=== PATIENT | male | born 2000 | race Caucasian/White ===

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

== ENCOUNTER 2021-02-23 20:18 | Emergency (ER) | payer BC ==
[2021-02-23 20:42] VITALS: BP 136/86; PULSE 79; RESP 18; TEMP 98.3
[2021-02-23] MEDS ORDERED: predniSONE 50 MG TAB PO STA (20:57)
[2021-02-23] MEDS ORDERED: diphenhydrAMINE 50 MG/ML 1 ML VIAL IM STA (20:57)
--- NOTE | 2021-02-23 21:00 | ED ---
Skin/Abscess/FB HPI - General Chief complaint: Skin/Abscess/Foreign Body Stated complaint: rash/hives Time Seen by Provider: 02/23/21 20:49 Source: patient, RN notes reviewed Mode of arrival: ambulatory Limitations: no limitations - History of Present Illness Initial comments: 20-year-old white male patient, alert and oriented 4, presents to the emergency room with complaints of a rash to arms abdomen and lower legs. Patient states that he thought maybe he was ALLERGIC to the straw that he was handling at work today however he did have pants on and the rash is on his legs now. It seems to be progressing downward. He did have a similar rash several years ago in [place] but never determined the cause. As far as he knows he is only ALLERGIC to [place]. He states he has no nausea vomiting throat swelling or difficulty in breathing. Was on his way to the store to get Benadryl and decided to stop at the ER for evaulation. He is not on any medications. He is a nonsmoker. No medical history. MD complaint: rash -: days(s) (1) Location: generalized Severity scale (1-10): 4 Quality: other (itching) Consistency: constant Improves with: none Worsens with: none Context: other (possibly straw) Associated symptoms: denies other symptoms Treatments Prior to Arrival: none - Related Data Previous Rx's Medication Instructions Recorded Cephalexin [Keflex] 500 mg PO Q6HR 5 Days #20 cap 06/16/20 Allergies Allergy/AdvReac Type Severity Reaction Status Date / Time DORITOS Allergy Rash/Hives Uncoded 02/23/21 20:42 Review of Systems ROS Statement: Those systems with pertinent positive or pertinent negative responses have been documented in the HPI. ROS Other: All systems not noted in ROS Statement are negative. Past Medical History Past Medical History: No Reported History Additional Past Medical History / Comment(s): IBS History of Any Multi-Drug Resistant Organisms: None Reported Past Surgical History: No Surgical Hx Reported, Orthopedic Surgery Past Psychological History: No Psychological Hx Reported Smoking Status: Never smoker Past Alcohol Use History: None Reported Past Drug Use History: None Reported General Exam Limitations: no limitations General appearance: alert, in no apparent distress Head exam: Present: atraumatic, normocephalic, normal inspection Eye exam: Present: normal appearance, PERRL, EOMI. Absent: scleral icterus, conjunctival injection, periorbital swelling ENT exam: Present: normal exam, normal oropharynx, mucous membranes moist, TM's normal bilaterally Neck exam: Present: normal inspection, full ROM. Absent: tenderness, meningismus, lymphadenopathy, thyromegaly Respiratory exam: Present: normal lung sounds bilaterally. Absent: respiratory distress, wheezes, rales, rhonchi, stridor, decreased breath sounds Cardiovascular Exam: Present: regular rate, normal rhythm, normal heart sounds. Absent: systolic murmur, diastolic murmur, rubs, gallop, clicks GI/Abdominal exam: Present: soft, normal bowel sounds. Absent: distended, tenderness, guarding, rebound, rigid Extremities exam: Present: full ROM, normal capillary refill. Absent: tenderness, pedal edema, joint swelling, calf tenderness Back exam: Present: normal inspection, full ROM. Absent: tenderness, CVA tenderness (R), CVA tenderness (L), rash noted Neurological exam: Present: alert, oriented X3, CN II-XII intact Psychiatric exam: Present: normal affect, normal mood Skin exam: Present: warm, dry, intact, normal color, urticaria, other (Hives to bilateral upper and lower extremities and lower abdomen). Absent: rash, cyan osis, diaphoretic, vesicles, petechiae, pallor, mottled Course Vital Signs 02/23/21 20:40 Temperature 98.3 F Pulse Rate 79 Respiratory 18 Rate Blood Pressure 136/86 O2 Sat by Pulse 100 Oximetry Medical Decision Making - Medical Decision Making Patient denies any difficulty breathing, nausea vomiting or tongue/throat swelling. He was given Benadryl and steroid states that rash is already starting to get better. Restricted return to the emergency room with any worsening symptoms or difficulty in breathing. Directed to take Benadryl every 6-8 hours. Follow-up with his primary care doctor as needed. Consider ALLERGY testing. Case discussed with Dr. Luther Disposition Clinical Impression: Rash Disposition: HOME SELF-CARE Condition: Good Instructions (If sedation given, give patient instructions): Acute Rash (ED) Additional Instructions: Take Benadryl every 6 hours as needed for the rash. Return if any worsening symptoms including shortness of breath or throat swelling. Is patient prescribed a controlled substance at d/c from ED?: No Referrals: Sampson Hameed DO [Primary Care Provider] - 1-2 days Time of Disposition: 21:16
== END 2021-02-23 21:27 | disposition home or self-care (01) ==
LOC: EC 20:18
DX: L50.9 Urticaria, unspecified (principal); Z91.018 Allergy to other foods
CPT/HCPCS: 99282; 96372; J1200; J7512

== ENCOUNTER 2021-08-02 16:34 | Emergency (ER) | payer BC ==
[2021-08-02] MEDS ORDERED: HYDROmorphone 0.5 MG/0.5 ML SYRINGE IVP STA (17:05)
[2021-08-02] MEDS ORDERED: ONDANSETRON 4 MG/2 ML VIAL IVP STA (17:05)
[2021-08-02] MEDS ORDERED: SODIUM CHLORIDE 0.9% 1,000 ML IV STA (17:05)
[2021-08-02 17:30] LABS: Basophils % (A) 0 %; Eosinophils % (A) 0 %; HCT 46.3 % (39.0-53.0); HGB 15.2 gm/dL (13.0-17.5); Lymphocytes # (A) 0.8 k/uL (1.0-4.8); Lymphocytes % (A) 11 %; MCH 28.9 pg (25.0-35.0); MCHC 32.8 g/dL (31.0-37.0); MCV 88.1 fL (80.0-100.0); Mean Platelet Volume 7.7; Monocytes # (A) 0.3 k/uL (0-1.0); Monocytes % (A) 5 %; Neutrophils % (A) 83 %; Platelet Count 215 k/uL (150-450); RBC 5.25 m/uL (4.30-5.90); RDW 13.6 % (11.5-15.5); WBC 7.2 k/uL (4.0-11.0)
[2021-08-02 17:45] LABS: ALT 29 U/L (4-49); AST 71 U/L (17-59); African American GFR (CKD) >90 (>60 ml/min/1.73 sqM); Albumin 4.3 g/dL (3.5-5.0); Alkaline Phosphatase 49 U/L (38-126); Amylase 46 U/L (30-110); Anion Gap 8 mmol/L; Blood Urea Nitrogen 11 mg/dL (9-20); Calcium 9.4 mg/dL (8.4-10.2); Carbon Dioxide 26 mmol/L (22-30); Chloride 105 mmol/L (98-107); Glucose 99 mg/dL (74-99); Lipase 31 U/L (23-300); Non-African American GFR(CKD) >90 (>60 ml/min/1.73 sqM); Potassium 4.2 mmol/L (3.5-5.1); Sodium 139 mmol/L (137-145); Total Bilirubin 0.6 mg/dL (0.2-1.3); Total Protein 6.8 g/dL (6.3-8.2)
--- NOTE | 2021-08-02 18:40 | ED ---
General Adult HPI - General Chief complaint: Abdominal Pain Stated complaint: Abd Pain Time Seen by Provider: 08/02/21 16:47 Source: patient, EMS, RN notes reviewed Mode of arrival: EMS Limitations: no limitations - History of Present Illness Initial comments: 21-year-old male presents to the emergency department for evaluation of left lower quadrant abdominal pain, onset yesterday, and worsening today. Patient describes the discomfort as a sensation of gas discomfort that is unrelieved with belching, bowel movement, or passing gas. He does report intermittent episodes of nausea. Reports decreased oral intake. States he had Covid at the beginning of the month. History of IBS. Denies fever, chills, chest pain, shortness of breath, diarrhea, constipation, dysuria, or hematuria. - Related Data Previous Rx's Medication Instructions Recorded Cephalexin [Keflex] 500 mg PO Q6HR 5 Days #20 cap 06/16/20 Dicyclomine [Bentyl] 20 mg PO BID PRN #30 tablet 08/02/21 Ondansetron Odt [Zofran Odt] 4 mg PO Q8HR PRN #10 tab 08/03/21 Allergies Allergy/AdvReac Type Severity Reaction Status Date / Time DORITOS Allergy Rash/Hives Uncoded 08/02/21 16:36 Review of Systems ROS Statement: Those systems with pertinent positive or pertinent negative responses have been documented in the HPI. ROS Other: All systems not noted in ROS Statement are negative. Past Medical History Past Medical History: No Reported History Additional Past Medical History / Comment(s): IBS History of Any Multi-Drug Resistant Organisms: None Reported Past Surgical History: No Surgical Hx Reported, Orthopedic Surgery Past Psychological History: No Psychological Hx Reported Smoking Status: Never smoker Past Alcohol Use History: None Reported Past Drug Use History: None Reported General Exam Limitations: no limitations (Well-developed, well-nourished male in mild distress. Initial temperature 98.6, pulse 60, respirations 16, blood pressure 144/71, pulse ox 98% on room air.) General appearance: alert, other ENT exam: Present: normal exam, normal oropharynx, mucous membranes moist Respiratory exam: Present: normal lung sounds bilaterally. Absent: respiratory distress, wheezes, rales, rhonchi, stridor Cardiovascular Exam: Present: regular rate, normal rhythm, normal heart sounds. Absent: systolic murmur, diastolic murmur, rubs, gallop, clicks GI/Abdominal exam: Present: soft, tenderness (Mild left-sided tenderness upon palpation), guarding (Guarding of the left lower quadrant), normal bowel sounds. Absent: distended, rebound, rigid Back exam: Absent: CVA tenderness (R), CVA tenderness (L) Neurological exam: Present: alert, oriented X3, CN II-XII intact Psychiatric exam: Present: normal affect, normal mood Skin exam: Present: warm, dry, intact, normal color. Absent: rash Course Vital Signs 08/02/21 08/02/21 08/02/21 16:36 17:34 18:57 Pulse Rate 60 63 78 Respiratory 16 16 18 Rate Blood Pressure 144/71 141/65 141/76 O2 Sat by Pulse 98 97 98 Oximetry Medical Decision Making - Medical Decision Making 21-year-old male with a history of IBS presents to the emergency department via EMS for evaluation of left lower quadrant abdominal pain. Upon arrival, patient appears moderately uncomfortable though was able to rest calmly in bed and articulate symptom onset. His physical exam findings are overall unremarkable. He does have mild left-sided abdominal tenderness upon palpation, though it is nonlocalized and nonradiating. Patient is afebrile with stable vital signs. He was given a liter of IV fluids along with pain medication and nausea medicine with modest improvement. He was also given Bentyl for pain that is spasmodic in nature. Laboratory studies were obtained and are unremarkable. CT of the abdomen and pelvis with contrast was obtained and shows no acute process. Findings were discussed with patient and mother. Suspect this is related to underlying IBS, though he is encouraged to track nature of discomfort and potential triggers. He will be discharged home to follow up with his PCP for a recheck. Prescribed Bentyl and Zofran. Return parameters were discussed in de tail. Patient verbalizes understanding and agrees with this plan. This patient's care was discussed with my attending . - Lab Data Result diagrams: 08/02/21 17:18 08/02/21 17:18 Lab Results 08/02/21 08/02/21 08/02/21 Range/Units 17:18 17:18 17:18 WBC 7.2 (4.0-11.0) k/uL RBC 5.25 (4.30-5.90) m/uL Hgb 15.2 (13.0-17.5) gm/dL Hct 46.3 (39.0-53.0) % MCV 88.1 (80.0-100.0) fL MCH 28.9 (25.0-35.0) pg MCHC 32.8 (31.0-37.0) g/dL RDW 13.6 (11.5-15.5) % Plt Count 215 (150-450) k/uL MPV 7.7 Neutrophils % 83 % Lymphocytes % 11 % Monocytes % 5 % Eosinophils % 0 % Basophils % 0 % Neutrophils # 6.0 (1.3-7.7) k/uL Lymphocytes # 0.8 L (1.0-4.8) k/uL Monocytes # 0.3 (0-1.0) k/uL Eosinophils # 0.0 (0-0.7) k/uL Basophils # 0.0 (0-0.2) k/uL Sodium 139 (137-145) mmol/L Potassium 4.2 (3.5-5.1) mmol/L Chloride 105 (98-107) mmol/L Carbon Dioxide 26 (22-30) mmol/L Anion Gap 8 mmol/L BUN 11 (9-20) mg/dL Creatinine 0.81 (0.66-1.25) mg/dL Est GFR (CKD-EPI)AfAm >90 (>60 ml/min/1.73 sqM) Est GFR (CKD-EPI)NonAf >90 (>60 ml/min/1.73 sqM) Glucose 99 (74-99) mg/dL Calcium 9.4 (8.4-10.2) mg/dL Total Bilirubin 0.6 (0.2-1.3) mg/dL AST 71 H (17-59) U/L ALT 29 (4-49) U/L Alkaline Phosphatase 49 (38-126) U/L Troponin I <0.012 (0.000-0.034) ng/mL Total Protein 6.8 (6.3-8.2) g/dL Albumin 4.3 (3.5-5.0) g/dL Amylase 46 (30-110) U/L Lipase 31 (23-300) U/L Urine Color Urine Appearance (Clear) Urine pH (5.0-8.0) Ur Specific [place] (1.001-1.035) Urine Protein (Negative) Urine Glucose (UA) (Negative) Urine Ketones (Negative) Urine Blood (Negative) Urine Nitrite (Negative) Urine Bilirubin (Negative) Urine Urobilinogen (<2.0) mg/dL Ur Leukocyte Esterase (Negative) 08/02/21 Range/Units 19:07 WBC (4.0-11.0) k/uL RBC (4.30-5.90) m/uL Hgb (13.0-17.5) gm/dL Hct (39.0-53.0) % MCV (80.0-100.0) fL MCH (25.0-35.0) pg MCHC (31.0-37.0) g/dL RDW (11.5-15.5) % Plt Count (150-450) k/uL MPV Neutrophils % % Lymphocytes % % Monocytes % % Eosinophils % % Basophils % % Neutrophils # (1.3-7.7) k/uL Lymphocytes # (1.0-4.8) k/uL Monocytes # (0-1.0) k/uL Eosinophils # (0-0.7) k/uL Basophils # (0-0.2) k/uL Sodium (137-145) mmol/L Potassium (3.5-5.1) mmol/L Chloride (98-107) mmol/L Carbon Dioxide (22-30) mmol/L Anion Gap mmol/L BUN (9-20) mg/dL Creatinine (0.66-1.25) mg/dL Est GFR (CKD-EPI)AfAm (>60 ml/min/1.73 sqM) Est GFR (CKD-EPI)NonAf (>60 ml/min/1.73 sqM) Glucose (74-99) mg/dL Calcium (8.4-10.2) mg/dL Total Bilirubin (0.2-1.3) mg/dL AST (17-59) U/L ALT (4-49) U/L Alkaline Phosphatase (38-126) U/L Troponin I (0.000-0.034) ng/mL Total Protein (6.3-8.2) g/dL Albumin (3.5-5.0) g/dL Amylase (30-110) U/L Lipase (23-300) U/L Urine Color Yellow Urine Appearance Clear (Clear) Urine pH 7.0 (5.0-8.0) Ur Specific [place] 1.025 (1.001-1.035) Urine Protein Negative (Negative) Urine Glucose (UA) Negative (Negative) Urine Ketones Negative (Negative) Urine Blood Negative (Negative) Urine Nitrite Negative (Negative) Urine Bilirubin Negative (Negative) Urine Urobilinogen <2.0 (<2.0) mg/dL Ur Leukocyte Esterase Negative (Negative) - Radiology Data Radiology results: report reviewed, image reviewed CT of the abdomen and pelvis with contrast was obtained. Report was reviewed in its entirety. Impression per Dr. Heaton is negative computed tomography scan of the abdomen and pelvis. Disposition Clinical Impression: Abdominal pain, IBS (irritable bowel syndrome) Disposition: HOME SELF-CARE Condition: Stable Instructions (If sedation given, give patient instructions): Irritable Bowel Syndrome (ED) Additional Instructions: Take Bentyl twice a day as needed for spasmodic abdominal pain. Continue healthy diet/lifestyle. Continue to avoid GI irritants. Follow up with your PCP for further evaluation and treatment. Return to the emergency department with any new, worsening, or concerning symptoms. Prescriptions: Dicyclomine [Bentyl] 20 mg PO BID PRN #30 tablet PRN Reason: Pain Ondansetron Odt [Zofran Odt] 4 mg PO Q8HR PRN #10 tab PRN Reason: Nausea Is patient prescribed a controlled substance at d/c from ED?: No Referrals: Sampson Hameed DO [Primary Care Provider] - 1-2 days Time of Disposition: 20:06
[2021-08-02 18:57] VITALS: BP 141/76; PULSE 78; RESP 18
--- NOTE | 2021-08-02 19:02 | CT ---
EXAMINATION TYPE: CT abdomen pelvis w con DATE OF EXAM: 08/02/2021 COMPARISON: 03/21/2020 HISTORY: LLQ pain, Hx IBS CT DLP: 825.3 mGycm Automated exposure control for dose reduction was used. CONTRAST: Performed with IV Contrast, patient injected with 100 mL of Isovue 300. Images obtained from the diaphragm to the floor the pelvis with IV contrast. Lung bases are clear. There is no pleural effusion. Heart size is normal. There is no pericardial eff usion. Liver spleen stomach pancreas gallbladder appear normal. The bile duct are nondilated. There is no adrenal mass. Kidneys show satisfactory contrast opacification. There is no hydronephrosi s. Delayed images show normal renal excretion. There is no retroperitoneal adenopathy. The bladder di stends smoothly. There is no internal hernia. There is no free fluid in the pelvis. There is no evide nce of a pelvic mass. There is no mesenteric edema. There is no ascites or free air. There is no sign of a bowel obstructio n. Appendix not seen. No sign of thickened appendix. The lumbar vertebrae have normal alignment. Posterior elements are intact. There is no compression fr acture. Bony pelvis is intact. Hip joints are intact. IMPRESSION: Negative CT scan of the abdomen and pelvis. No adverse change compared to the old exam.
[2021-08-02 19:22] LABS: Appearance,Urine Clear (Clear); Bilirubin,Urine Negative (Negative); Blood,Urine Negative (Negative); Color,Urine Yellow; Glucose,Urine (UA) Negative (Negative); Ketones,Urine Negative (Negative); Leukocyte Esterase,Urine Negative (Negative); Nitrite,Urine Negative (Negative); Protein,Urine Negative (Negative); Specific Gravity,Urine 1.025 (1.001-1.035); Urobilinogen,Urine <2.0 mg/dL (<2.0)
[2021-08-02] MEDS ORDERED: DICYCLOMINE 10 MG/ML 2 ML AMP IM STA (19:39)
== END 2021-08-02 20:27 | disposition home or self-care (01) ==
LOC: EC 16:34
DX: R10.9 Unspecified abdominal pain (principal); K58.9 Irritable bowel syndrome, unspecified; Z91.010 Allergy to peanuts
CPT/HCPCS: 96374; 99284; 96375; 96372; 36415; 80053; 82150; 83690; 84484; 85025; 81003; 74177; J0500; J2405; J1170; Q9967

== ENCOUNTER → 2021-09-25 | Outpatient (CLI) | payer BC ==
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
== END | disposition home or self-care (01) ==
LOC: RADMRIMAIN 15:05
PROVIDERS: ATTEND Family Medicine
DX: M25.572 Pain in left ankle and joints of left foot (principal); T14.8XXA Other injury of unspecified body region, initial encounter

== ENCOUNTER → 2021-12-24 | Outpatient (CLI) | payer BC ==
--- NOTE | 2021-12-24 08:43 | CT ---
EXAMINATION TYPE: CT brain wo con DATE OF EXAM: 12/24/2021 COMPARISON: None available HISTORY: Headaches CT DLP: 1081.6 mGycm Automated exposure control for dose reduction was used. TECHNIQUE: CT scan of the brain is performed without IV contrast administration. FINDINGS: No acute intracranial hemorrhage. No gross acute cortical infarct. No midline shift, herniation or ve ntriculomegaly. Unremarkable morton-white matter differentiation, basal cisterns, sella and CP angles. No gross space-o ccupying lesion, vasogenic edema or mass effect. Unremarkable orbits. Clear visualized paranasal sinuses and mastoid air cells. Unremarkable calvarial bones. IMPRESSION: No acute intracranial abnormality or gross space-occupying lesion by this nonenhanced CT scan. The headaches persist, further MRI assessment can be considered.
== END | disposition home or self-care (01) ==
LOC: RADCTMAIN 07:05
PROVIDERS: ATTEND Family Medicine
DX: R51.9 Headache, unspecified (principal)
CPT/HCPCS: 70450

== ENCOUNTER → 2024-09-18 | Outpatient (CLI) | payer BC ==
--- NOTE | 2024-09-18 20:53 | MR ---
EXAMINATION TYPE: MR brain wo/w con DATE OF EXAM: 09/18/2024 7:59 PM COMPARISON: 12/24/2021. CLINICAL INDICATION: Male, 24 years old with history of R51.9, R53.83; PHH, Headaches in the middle l eft side and down into neck, Occasional numbness into both arms, TECHNIQUE: Multi planar, multi sequence imaging was performed through the brain including: T1, T2, In version recovery, susceptibility weighted imaging and gradient echo imaging and Diffusion weighted im aging. The patient was then given intravenous contrast and multi planar, T1 fat-saturation images wer e obtained. IV Contrast: 9.5 mL Gadobutrol FINDINGS: The morton-white junctions, ventricular system, basal cisterns appear unremarkable. Diffusion-weighted imaging shows no evidence of restricted diffusion to suggest acute/subacute infarct. Intracranial ar terial flow voids are maintained. Midline structures show no abnormality. . The susceptibility weight ed images do not reveal any evidence for micro-hemorrhage. After administration of gadolinium, no abn ormal enhancement is seen. The bone marrow signal is within normal limits. Paranasal sinuses and mastoid air cells: No significant paranasal sinus disease. Visualized orbits: Orbital contents are intact. IMPRESSION: No evidence for active demyelination. No evidence of intracranial mass, acute/subacute infarct, or ab normal enhancement. [facility], , 09/18/2024 8:50 PM
== END | disposition home or self-care (01) ==
LOC: RADMRIMAIN 19:40
PROVIDERS: ATTEND Family Medicine
DX: R51.9 Headache, unspecified (principal); R53.83 Other fatigue; R20.0 Anesthesia of skin
CPT/HCPCS: 70553; A9585